=== PATIENT | female | born 1965 ===

== ENCOUNTER 2018-05-15 08:21 | Outpatient (CLI) | payer OTHER ==
[~2018-05-15 08:21] MED LIST: VISTARIL25 MG PO
== END 2018-05-15 08:41 | disposition home or self-care (01) ==
LOC: RAD 08:21
DX: I10 Essential (primary) hypertension (principal); Z12.31 Encounter for screening mammogram for malignant neoplasm of breast; M54.2 Cervicalgia; M54.6 Pain in thoracic spine

== ENCOUNTER 2019-12-09 19:27 | Emergency (ER) | payer OTHER ==
[~2019-12-09] VITALS: Ht 160 cm; Wt 55.8 kg
[2019-12-09] MEDS ORDERED: COZAAR100 MG (19:43)
[2019-12-09] MEDS ORDERED: PROTONIX40 M1 (19:43)
== END 2019-12-09 22:35 | disposition home or self-care (01) ==
LOC: ER 19:27
DX: K29.70 Gastritis, unspecified, without bleeding (principal); K21.9 Gastro-esophageal reflux disease without esophagitis

== ENCOUNTER 2021-01-13 12:57 | Emergency (ER) | payer OTHER ==
[~2021-01-13] VITALS: Ht 152.4 cm; Wt 61.7 kg
[~2021-01-13 12:57] MED LIST changes: +COZAAR100 MG; +PROTONIX40 M1
== END 2021-01-13 15:22 | disposition home or self-care (01) ==
LOC: ER 12:57
DX: I10 Essential (primary) hypertension (principal)

== ENCOUNTER 2022-10-07 08:17 | Outpatient (CLI) | payer OTHER | END 2022-10-07 08:30 | disposition home or self-care (01) | LOC: TOM 08:17 | PROVIDERS: ATTEND Specialist | DX: R51.9 Headache, unspecified (principal); E78.5 Hyperlipidemia, unspecified; I10 Essential (primary) hypertension; Z13.1 Encounter for screening for diabetes mellitus; Z12.11 Encounter for screening for malignant neoplasm of colon; Z12.31 Encounter for screening mammogram for malignant neoplasm of breast ==

== ENCOUNTER 2022-10-16 08:54 | Outpatient (CLI) | payer OTHER | END 2022-10-16 09:32 | disposition home or self-care (01) | LOC: MAMO-SONO 08:54 | PROVIDERS: ATTEND Specialist | DX: Z12.31 Encounter for screening mammogram for malignant neoplasm of breast (principal); I10 Essential (primary) hypertension; R51.9 Headache, unspecified; Z12.11 Encounter for screening for malignant neoplasm of colon; Z13.1 Encounter for screening for diabetes mellitus; E78.5 Hyperlipidemia, unspecified ==

== ENCOUNTER 2025-04-22 09:22 | Outpatient (CLI) | payer OTHER | END 2025-04-22 09:24 | disposition home or self-care (01) | LOC: RAD 09:22 | PROVIDERS: ATTEND Specialist | DX: M85.80 Other specified disorders of bone density and structure, unspecified site (principal); I10 Essential (primary) hypertension; M25.50 Pain in unspecified joint; Z12.11 Encounter for screening for malignant neoplasm of colon ==

== ENCOUNTER 2025-05-30 10:13 | Outpatient (CLI) | payer OTHER | END 2025-05-30 10:14 | disposition home or self-care (01) | LOC: NUCLEAR 10:13 | PROVIDERS: ATTEND Specialist | DX: M81.0 Age-related osteoporosis without current pathological fracture (principal); M85.80 Other specified disorders of bone density and structure, unspecified site ==